=== PATIENT | male | born 1965 | race Caucasian/White ===

== ENCOUNTER 2016-07-07 05:32 | Inpatient (IN) | payer OTHER ==
[2016-07-04 12:53] LABS: HEMATOCRIT 43.5 % (40.0-51.0); HEMOGLOBIN 15.7 g/dL (13.6-17.8)
[2016-07-04 13:00] LABS: BUN (BLOOD UREA NITROGEN) 12 MG/DL (6-23); CALCIUM, SERUM 8.8 MG/DL (8.5-10.4); CHLORIDE, SERUM 106 MMOL/L (96-112); CO2 (CARBON DIOXIDE) 27 MMOL/L (24-34); CREATININE 1.24 MG/DL (0.70-1.30); GFR AFRICAN AMERICAN 78 ML/MIN (>=60); GFR NON AFRICAN AMERICAN 67 ML/MIN (>=60); GLUCOSE, SERUM 88 MG/DL (60-99); SODIUM, SERUM 141 MMOL/L (135-148)
[2016-07-04 14:16] LABS: ASCORBIC ACID (UR NOT ORDER) NEG (NEG); BILIRUBIN, URINE NEGATIVE (NEG); KETONE, URINE NEGATIVE (NEG); LEUKOCYTE ESTERASE(NOT OR NEG (NEG); WBC (NOT ORDERED) (RFLEX) < 1 (0-5)
--- NOTE | ~2016-07-07 | OP ---
Record Of Operation [facility] [address] [place]. [address] NAME: AMPARO MCDANIELS : 65 STATUS : ADM IN PAT#: [id number] AGE: 51 ADM/REG DATE : 07/07/16 MR#: [id number] REPORT SERV DATE: 07/07/16 DICTATED BY: MARIAJOSE CAMEJO DATE: 07/07/16 REPORT STATUS : Draft TRANSCRIBED BY: MODL DATE: 07/07/16 DATE OF PROCEDURE: 07/07/2016 OPERATION: Robot-assisted laparoscopic radical prostatectomy. PREOPERATIVE DIAGNOSIS: Prostate cancer. POSTOPERATIVE DIAGNOSIS: Prostate cancer. INDICATION: Mr. Mcdaniels is a 51-year-old male with high-volume Maryana 6 disease. He has been counseled regarding his options including active surveillance, radiation, and prostate removal. He is here for radical prostatectomy. ANESTHESIA: General. COMPLICATIONS: None. IMPLANTS: An 18-Stateless Luo catheter. DRAINS: #10 EVELYN drain. SPECIMEN: Prostate for pathologic analysis. NARRATIVE: The patient was brought to the operating room, identified by his wristband. General anesthesia was induced. Ancef was given for preoperative antibiotics. He was placed in a dorsal lithotomy position and prepped and draped in a sterile fashion. His abdomen was insufflated to a pressure of 15 mmHg using a Veress needle. An 8 mm incision was made in the supraumbilical position. The abdomen was entered under direct vision. Abdomen was inspected. There were no adhesions or abnormalities. Standard X-Y port placement was performed with two 8 mm ports on the left side and one 8 mm port on the right side. A 12 mm and 5 mm ports were placed in the right side of the body for warehouse administrative assistant ports. The patient was placed in Trendelenburg and the robot was docked. I began the operation by incising the peritoneum over the seminal vesicles and vas deferens. These structures were dissected out bilaterally. The vas deferens were clipped and divided. The pedicle to the seminal vesicles were clipped and divided. The seminal vesicles were then lifted anteriorly. Denonvilliers fascia was sharply incised and reflected onto the rectum. This dissection was carried from the base to the apex of the prostate. The neurovascular bundles were identified laterally, and they were freed up from the prostate to a small degree at this time. Next, the bladder was dropped off the anterior abdominal wall using electrocautery. This exposed the pubic bone and the prostate. The fibrofatty tissue surrounding the prostate was removed with bipolar cautery and scissors. The superficial dorsal vein was controlled with bipolar cautery and scissors. The tissue was sent to pathology as anterior fat pad. Next, the endopelvic fascia was divided bilaterally. The levator fibers were bluntly pushed off the prostate bilaterally. Few of the puboprostatic ligaments were divided bilaterally. The dorsal vein was then precisely Record Of Operation [facility] [address] [facility] [place]. [address] NAME: AMPARO MCDANIELS : 65 STATUS : ADM IN PAT#: [id number] AGE: 51 ADM/REG DATE : 07/07/16 MR#: [id number] REPORT SERV DATE: 07/07/16 DICTATED BY: MARIAJOSE CAMEJO DATE: 07/07/16 REPORT STATUS : Draft TRANSCRIBED BY: DINAH DATE: 07/07/16 identified. Dorsal vein was stapled with a 35 mm endovascular stapler. This exposed the urethra which was dissected out circumferentially. Next, a 3-0 V-Loc suture was used to suspend the urethra and add additional reinforcement to the dorsal vein. Next, a high release of the neurovascular bundles was performed bilaterally. On the right side of the prostate beneath the artery and the neurovascular bundle for maximal nerve sparing and on the left side where the tumor was, I left that artery on the prostate. There was excellent nerve sparing bilaterally. This was done in a retrograde fashion and minimal tension was placed on the nerves. Next, a bladder neck sparing operation was performed. The fibrofatty tissue overlying the bladder neck was controlled with bipolar cautery and scissors. The anterior bladder neck was sharply incised and the bladder was entered. He had a small median lobe. The detrusor fibers were incised on the median lobe and then the dissection was carried posteriorly to expose the seminal vesicles and vas deferens. These were delivered into the surgical field. The pedicles to the prostate were clipped and divided bilaterally. At this time, the nerves had been completely spared and the prostate was freed up to the urethra. The urethra was then divided under direct vision. We are getting maximal urethral length. The posterior striated sphincter was divided and the prostate was placed into the EndoCatch bag. There was no additional bleeding. A lymph node dissection was not performed as he has low-risk disease and is not indicated per NCCN guidelines. Next, the posterior striated sphincter was reconstructed using a 3-0 V-Loc suture in a manner described by Derek. Finally, a vesicourethral anastomosis was performed with two interlocked 3-0 V-Loc sutures in a running fashion. An 18-Stateless Luo catheter was placed. The bladder was irrigated. The anastomosis was watertight. The balloon was inflated to 15 mL of sterile water. The robot was undocked. The warehouse administrative assistant port was closed with a 0 Vicryl suture using a Stanley-Rubina device. A #10 EVELYN drain was placed through the left lateral most of the robotic port. It was sutured in place with a 2-0 nylon suture. The supraumbilical incision was enlarged to the skin and fascia levels and the prostate and EndoCatch bag were removed and sent to pathology for analysis. The fascia was closed with a 0 Monocryl suture using a [id number] fashion. The wounds were irrigated clear. 0.25% Marcaine was used for anesthesia. A TAP block was used preoperatively. A 4-0 Monocryl suture was used to close the skin in a subcuticular fashion. Dermabond dressing was placed. The patient was awoken from anesthesia and transferred to the recovery room in stable condition. There were no complications. LUCIANO/DINAH Mariajose Camejo MD / [id number] CC: Mariajose Camejo MD
[~2016-07-07 05:32] MED LIST: ADVIL PO; CAYENNE PEPPER PO; CINNAMONPO PO; CO Q-10200 MG PO; FISH OIL PO; METPAKSF PO; MEVACOR PO; PRINZIDE1 TA1 PO; TUMSROLL PO; V2 PO; ZANTAC150 MG PO
[2016-07-07 10:35] LABS: HEMATOCRIT 39.9 % (40.0-51.0); HEMOGLOBIN 14.2 g/dL (13.6-17.8)
[2016-07-07 10:46] LABS: BUN (BLOOD UREA NITROGEN) 11 MG/DL (6-23); CALCIUM, SERUM 8.3 MG/DL (8.5-10.4); CHLORIDE, SERUM 104 MMOL/L (96-112); CO2 (CARBON DIOXIDE) 26 MMOL/L (24-34); CREATININE 1.34 MG/DL (0.70-1.30); GFR AFRICAN AMERICAN 71 ML/MIN (>=60); GFR NON AFRICAN AMERICAN 61 ML/MIN (>=60); GLUCOSE, SERUM 132 MG/DL (60-99); POTASSIUM, SERUM 3.8 MMOL/L (3.5-5.3); SODIUM, SERUM 139 MMOL/L (135-148)
[2016-07-08 06:28] LABS: HEMOGLOBIN 12.7 g/dL (13.6-17.8)
[2016-07-08 06:40] LABS: BUN (BLOOD UREA NITROGEN) 13 MG/DL (6-23); CALCIUM, SERUM 7.9 MG/DL (8.5-10.4); CHLORIDE, SERUM 103 MMOL/L (96-112); CO2 (CARBON DIOXIDE) 25 MMOL/L (24-34); CREATININE 1.27 MG/DL (0.70-1.30); GFR AFRICAN AMERICAN 75 ML/MIN (>=60); GFR NON AFRICAN AMERICAN 65 ML/MIN (>=60); POTASSIUM, SERUM 3.6 MMOL/L (3.5-5.3); SODIUM, SERUM 138 MMOL/L (135-148)
[2016-07-08 06:44] LABS: GLUCOSE, SERUM 102 MG/DL (60-99)
[2016-07-08] MEDS ORDERED: PCET PO (08:38)
[2016-07-08] MEDS ORDERED: DSS PO (08:38)
[2016-07-08] MEDS ORDERED: BACTRIM DS1 TAB PO (08:39)
[2016-07-08] MEDS ORDERED: VIAGRA100 MG PO (08:40)
== END 2016-07-08 16:20 | disposition home or self-care (01) | DRG 708 ==
LOC: SDC/OF 05:32 → PACU 10:12 → 4SO 11:25
PROVIDERS: Urology
PROC: 0VTQ4ZZ Resection of Bilateral Vas Deferens, Percutaneous Endoscopic Approach (ICD-10-PCS; principal; 2016-07-07 06:30)
PROC: 0VT34ZZ Resection of Bilateral Seminal Vesicles, Percutaneous Endoscopic Approach (ICD-10-PCS; principal; 2016-07-07 06:30)
PROC: 0VT04ZZ Resection of Prostate, Percutaneous Endoscopic Approach (ICD-10-PCS; principal; 2016-07-07 06:30)
PROC: 8E0W4CZ Robotic Assisted Procedure of Trunk Region, Percutaneous Endoscopic Approach (ICD-10-PCS; principal; 2016-07-07 06:30)
DX: C61 Malignant neoplasm of prostate (principal); I10 Essential (primary) hypertension; K21.9 Gastro-esophageal reflux disease without esophagitis; E78.5 Hyperlipidemia, unspecified; I44.7 Left bundle-branch block, unspecified
CPT/HCPCS: 80048; 81001; 82570; 85014; 85018; 88304; 88305; 88309; 93005; A9270-GY; J0690; J1170; J1885; J2250; J2405; J2710; J2795; J3010